=== PATIENT | male | born 1975 | race Caucasian/White ===

== ENCOUNTER 2019-11-26 12:58 | Emergency (ER) | payer OTHER ==
[~2019-11-26 12:58] MED LIST: Iopamidol 370 76% 50 ML VIAL FS ONE; Iopamidol-370 76% 500 ML 1 ML ONE
[2019-11-26 14:13] LABS: #Eosinphils 0.1 thou/uL (0.0-0.7); #Lymphocytes 1.9 thou/uL (1.20-3.40); #Monocytes 0.7 thou/uL (0.11-0.59); #Neutrophils 4.5 thou/uL (1.40-6.50); %Basophils 0.5 % (0.0-1.0); %Lymphocytes 26.6 % (21.0-51.0); %Monocytes 9.8 % (0.0-10.0); %Neutrophils 62.2 % (42.0-75.0); Hemoglobin 14.9 g/dL (14.0-18.0); Mean Corpuscular HGB CONC 33.7 g/dL (32.0-36.0); Mean Corpuscular Hemoglobin 31.7 pg (27.0-31.0); Mean Corpuscular Volume 94.2 fL (78.0-98.0); Mean Platelet Volume 7.9 fL (7.4-10.4); Platelet Count 199 thou/uL (130-400); RBC Distribution Width 11.8 % (11.5-14.5); Red Blood Cell (RBC) Count 4.69 mill/uL (4.70-6.10); White Blood Cell (WBC) Count 7.2 thou/uL (4.8-10.8)
[2019-11-26 14:35] LABS: ALT (SGPT) 14 U/L (8-55); AST (SGOT) 14 U/L (5-34); Alkaline Phosphatase 67 U/L (40-110); Anion Gap 13 mmol/L (10-20); BUN (Urea Nitrogen) 12 mg/dL (8.9-20.6); Bilirubin, Total 0.3 mg/dL (0.2-1.2); Calc. Creatinine Clearance 0 mL/min (70-130); Carbon Dioxide 21 mmol/L (22-29); Chloride 109 mmol/L (98-107); Estimated GFR-MDRD 82; Glucose 91 mg/dL (70-105); Potassium 3.9 mmol/L (3.5-5.1); Sodium 139 mmol/L (136-145)
[2019-11-26 16:18] LABS: Bacteria/HPF None Seen HPF (None Seen); Bilirubin Negative (Negative); Blood, Urine Trace (Negative); Clarity Clear (Clear); Glucose, Urine (Dipstick) Normal (Negative); Ketone, Urine Negative (Negative); Leukocyte Negative Leu/uL (Negative); Nitrite Negative (Negative); Protein, Urine (Dipstick) Negative (Neg-Trace); RBC/HPF 0-3 HPF (0-3); Specific Gravity, Urine 1.021 (1.002-1.036); Squamous Epithelial None Seen HPF (0-3); Urobilinogen Normal mg/dL (Less than 2); WBC/HPF 0-3 HPF (0-3); pH, Urine 5.5 (5.0-9.0)
--- NOTE | 2019-11-26 16:55 | CT ---
EXAM: CT ABDOMEN AND PELVIS HISTORY: Pain. Lower abdominal pain. Rectal pain. COMPARISON: None. Procedure: Multiple contiguous axial images were obtained and a CT of the abdomen and pelvis with IV contrast. C oronal reformats were performed. FINDINGS: Lower Chest: Minimal dependent atelectatic change Vessels: Normal caliber aorta. Heart: Normal heart size. No significant pericardial effusion Abdomen: Portal vein:Patent Gallbladder: Unremarkable Liver: 0.4 cm hypodensity in the right hepatic lobe, too small to further characterize. Pancreas: within normal limits. Spleen: within normal limits. Adrenals: within normal limits. Kidneys: Symmetric enhancement. No obstructive uropathy. Peritoneum: No ascites or free air, no fluid collection. Bowel: Multiple normal caliber small bowel loops. No evidence of a high-grade small bowel obstruction . There do appear to be some bowel wall thickening involving jejunal loops. The possibility of a mild enteritis cannot be excluded. The adjacent mesentery does demonstrate mildly enlarged lymph node s. Distal small bowel loops do not demonstrate bowel wall thickening. Normal ileocecal junction. Scattered fecal material and contrast in a nondistended, nondilated colon. Normal caliber appendix. D oes appear to be some mucosal thickening at the level of rectum. This perirectal fat stranding. Correlate for prostatitis. Mesentery and Retroperitoneum: Slightly enlarged mesenteric lymph nodes predominantly in the left upp er quadrant. Air Press Operator enlarged lymph node measures 1.0 x 0.5 cm. Abdominal Wall: within normal limits. Pelvis: Reproductive Organs: Mild enlarged prostate gland. Pelvis: No mass, lymphadenopathy, free air or free fluid. Bladder: within normal limits. Bones: within normal limits. IMPRESSION: 1. Bowel wall thickening involving jejunal loops with mildly enlarged associated mesenteric lymph nod es. Correlate for mesenteric right wrist as well as possible enteritis. 2. Mucosal thickening and perirectal fat stranding at the level of rectum. Correlate for possible pro statitis.
[2019-11-26] MEDS ORDERED: cefTRIAXone\\ROCEPHIN 1 GM VIAL ONE (17:00)
[2019-11-26] MEDS ORDERED: Azithromycin 250 MG TAB ONE (17:12)
== END 2019-11-26 17:28 | disposition home or self-care (01) ==
LOC: ERS 12:58 → EEVIPCON 12:58 → ERS 17:28
DX: K52.9 Noninfective gastroenteritis and colitis, unspecified (principal); K62.89 Other specified diseases of anus and rectum; B20 Human immunodeficiency virus [HIV] disease; F41.9 Anxiety disorder, unspecified; F31.9 Bipolar disorder, unspecified; F17.210 Nicotine dependence, cigarettes, uncomplicated; Z79.899 Other long term (current) drug therapy
CPT/HCPCS: 74177; 80053; 81003; 81015; 85025; 96374; J0696; Q9967